=== PATIENT | male | born 1970 | race Caucasian/White ===

== ENCOUNTER 2019-05-03 16:59 | Emergency (ER) | payer OTHER ==
[~2019-05-03] VITALS: Ht 190.5 cm; Wt 108.9 kg
[2019-05-03 17:23] VITALS: BP 128/73
--- NOTE | 2019-05-03 17:23 | NUR ---
PT BIB [facility] [address] AND [employer] OFFICERS,TOLD OFFICERS THAT HE TOOK 1/2 [employer] [place], PT IS AAOX1, NOT IN RESPIRATORY DISTRESS, HOOKED TO MONITOR, KEPT RESTEDE AND COMFORTABLE, WILL CONTINUE TO MONITOR.
--- NOTE | 2019-05-03 18:24 | NUR ---
DR. SANCHEZ AT BEDSIDE FOR EVAL.
--- NOTE | 2019-05-03 18:56 | NUR ---
Patient discharged in custody in stable condition. Written and verbal after care instructions given. Patient verbalizes understanding of instruction.
== END 2019-05-03 18:57 | disposition home or self-care (01) ==
LOC: ER 16:59
DX: T40.4X1A Poisoning by other synthetic narcotics, accidental (unintentional), initial encounter (principal); G40.909 Epilepsy, unspecified, not intractable, without status epilepticus; I10 Essential (primary) hypertension; F17.200 Nicotine dependence, unspecified, uncomplicated; Z60.2 Problems related to living alone; Y92.89 Other specified places as the place of occurrence of the external cause